=== PATIENT | female | born 1950 | race Caucasian/White ===

== ENCOUNTER → 2016-11-26 08:03 | Outpatient (CLI) | payer MEDICARE ==
[2014-05-22 14:00] VITALS: BMI 24.0
[~2016-11-26 08:03] MED LIST: ALDACTONE100 MG PO; CHRONULAC30 ML PO; FOLIC ACID1 MG PO; LASIX40 MG PO; LEVAQUIN500 MG PO; MUCINEX D1 TAB.SR . PO; PREDNISONE20 MG PO; PROAIR HFA8.5 GM INH; PROTONIX40 MG PO; SINGULAIR10 MG PO; SPIRIVA18 MCG INH; TESSALON PERLE100 MG PO; VITAMIN B-1100 M1 PO
== END | disposition home or self-care (01) ==
LOC: D.RT 08:00
DX: J44.9 Chronic obstructive pulmonary disease, unspecified (principal)

== ENCOUNTER 2018-06-25 16:01 | Inpatient (IN) | payer MEDICARE, BC ==
[~2018-06-25] VITALS: Ht 172.7 cm; Wt 66.7 kg
[2018-06-25] MEDS ORDERED: XIFAXAN550 MG PO (16:12)
[2018-06-25 17:01] LABS: BASOPHILS 0.2 % (0-2); EOSINOPHILS 0 % (0-7); HEMATOCRIT 40.8 % (36.0-48.0); HEMOGLOBIN 13.5 g/dL (12-16); IMMATURE GRANULOCYTES 0.1 % (0-5); LYMPHOCYTES 6.6 % (15-50); MCH 29.7 pg (26.0-34.0); MCHC 33.1 g/dL (31.0-37.0); MCV 89.9 fL (80.0-100.0); MEAN PLATELET VOLUME 9.5 fL (7.4-10.4); MONOCYTES 4.9 % (2-11); NEUTROPHILS 88.2 % (40-80); RBC 4.54 10x6/uL (4.00-5.40); RDW 16.9 % (11.5-14.5); WBC 10.4 10x3/uL (4.8-10.8)
[2018-06-25 17:08] LABS: ALBUMIN 3.5 g/dL (3.4-5.0); ALKALINE PHOSPHATASE 76 U/L (46-116); ALT (SGPT) 58 U/L (10-68); BILIRUBIN - TOTAL 0.79 mg/dL (0.2-1.3); CALC OSMOLALITY 281 mosm/kg (275-300); CALCIUM 9.3 mg/dL (8.5-10.1); CARBON DIOXIDE 22.7 mmol/L (21.0-32.0); CHLORIDE - SERUM 101 mmol/L (98-107); CREATININE - SERUM 1.2 mg/dL (0.6-1.3); GLUCOSE 114 mg/dL (74-106); POTASSIUM - SERUM 4.9 mmol/L (3.5-5.1); PROTEIN - SERUM 8.3 g/dL (6.4-8.2); SODIUM 137 mmol/L (136-145); UREA NITROGEN 33 mg/dL (7-18); eGFR NON AFRICAN AMERICAN 47 mL/min (90-120)
[2018-06-25 17:09] LABS: PLATELET COUNT 292 10x3/uL (130-400)
[2018-06-25 17:20] LABS: CKMB 10.4 U/L (0.0-3.6); CREATINE KINASE 219 UL (21-215)
[2018-06-25 17:31] LABS: TROPONIN-I < 0.017 ng/mL (0.000-0.060)
--- NOTE | 2018-06-25 18:00 | NUR ---
ROCEPHIN INFUSION COMPLETE AT THIS TIME.
--- NOTE | 2018-06-25 18:48 | NUR ---
respiratory at bedside.
--- NOTE | 2018-06-25 18:52 | NUR ---
REPORT CALLED TO [facility], NURSE ROOM 2214. PT STABLE, CALL LIGHT WITHIN REACH, DENIES NEEDS, WILL CONTINUE TO MONITOR.
[2018-06-25] MEDS ORDERED: PREDNISONE20 MG PO (19:36)
[2018-06-25] MEDS ORDERED: DOXYCYCLINE HY100 M2 PO (19:37)
--- NOTE | 2018-06-25 19:38 | NUR ---
PT RECEIVED TO FLOOR WITH FAMILY. PT ALERT AND ORIENTED. ASSESSED BREATH SOUNDS. SHALLOW BREATHS NOTED. DIMINSHED BREATH SOUNDS. PT DOES NOT COMPLAIN OF ANY PAIN. TELELMETRY APPLIED TO PATIENT PER ORDER.
[2018-06-25 22:14] VITALS: BP 150/89
[2018-06-26 01:42] VITALS: BP 128/74
[2018-06-26 03:44] VITALS: BP 150/89; BMI 22.4
--- NOTE | 2018-06-26 04:10 | NUR ---
PT ALERT AND WATCHING TV WITH DAUGHTER IN ROOM. ASSISTED PATIENT TO BATHROOM. PATIENT EXPERIENCES DYSPNA UPON EXERTION. PATIENT IS ABLE TO "CATCH BREATH" AFTER SEVERAL MINUTES. NC AT 3L.
[2018-06-26 05:23] VITALS: BP 143/74
--- NOTE | 2018-06-26 06:47 | NUR ---
I CONCUR WITH TELECOM MANAGER ASSESSMENT.
[2018-06-26 06:53] LABS: BASOPHILS 0.3 % (0-2); EOSINOPHILS 0 % (0-7); HEMOGLOBIN 11.9 g/dL (12-16); IMMATURE GRANULOCYTES 0.2 % (0-5); LYMPHOCYTES 8.7 % (15-50); MCH 29.1 pg (26.0-34.0); MCHC 32.2 g/dL (31.0-37.0); MCV 90.5 fL (80.0-100.0); MEAN PLATELET VOLUME 9.5 fL (7.4-10.4); MONOCYTES 4.3 % (2-11); NEUTROPHILS 86.5 % (40-80); PLATELET COUNT 277 10x3/uL (130-400); RBC 4.09 10x6/uL (4.00-5.40)
[2018-06-26 07:11] LABS: ALBUMIN 3.1 g/dL (3.4-5.0); ANION GAP 16.7 mmol/L (8-16); BILIRUBIN - TOTAL 0.39 mg/dL (0.2-1.3); CARBON DIOXIDE 24.1 mmol/L (21.0-32.0); CREATININE - SERUM 0.9 mg/dL (0.6-1.3); MAGNESIUM - SERUM 1.6 mg/dL (1.8-2.4); POTASSIUM - SERUM 4.8 mmol/L (3.5-5.1); PROTEIN - SERUM 7.4 g/dL (6.4-8.2)
--- NOTE | 2018-06-26 08:30 | NUR ---
PT AOX4 RESP EVEN AND NONLABORED PT DENIES NEEDS AT THIS TIME IV TO RIGHT HAND PATENT AND INTACT AT THIS TIME BED AT LOWEST SETTING CALL LIGHT WITHIN REACH SRX2 WILL CONTINUE TO MONITOR
[2018-06-26 08:46] VITALS: BMI 22.3
[2018-06-26 09:00] VITALS: BP 158/85
[2018-06-26 11:56] VITALS: Ht 172.7 cm; Wt 66.7 kg
[2018-06-26 13:40] VITALS: BP 158/77
[2018-06-26 18:20] VITALS: BP 149/91
--- NOTE | 2018-06-26 22:30 | NUR ---
RN NOTE: PT HAD EPISODE AFTER TAKING A SIP OF WATER WHERE SHE COULD NOT BREATH. VERY ANXIOUS, BUT BETTER NOW AND BREATHING EASIER. HS MEDICATIONS GIVEN WITH MILK. PROVIDED SCRUB PANTS AND BRIEFS, AND ASSISTED WITH CHANGING. WILL CONTINUE TO MONITOR FOR NEEDS.
[2018-06-27 01:14] VITALS: BP 158/76
--- NOTE | 2018-06-27 01:56 | NUR ---
PT RESTING COMFORTABLY WITH EYES CLOSED. THIS IS THE FIRST TIME PATIENT HAS BEEN ABLE TO RELAX AND SLEEP WITHOUT FEAR OF NOT BEING ABLE TO BREATHE. NO DISTRESS NOTED AT THIS TIME. RIGHT HAND IV INFUSING WITH LR @ 125. CALL LIGHT IN REACH.
--- NOTE | 2018-06-27 04:58 | NUR ---
RN NOTE: AGREE WITH GLUE MAKER ASSESSMENT.
[2018-06-27 05:33] VITALS: BP 154/81
--- NOTE | 2018-06-27 07:15 | NUR ---
MORNING ASSESSMENT COMPLETE. SEE ASSESSMENT FLOWSHEET FOR FURTHER DETIALS. PT LYING IN BED AAO X4 TO PERSON, PLACE, TIME, AND SITUATION. DENIES NEEDS AT THIS TIME. CL IN REACH. SIDE RAILS UP X2.
[2018-06-27 07:28] LABS: BASOPHILS 0.2 % (0-2); EOSINOPHILS 0 % (0-7); HEMATOCRIT 41.5 % (36.0-48.0); HEMOGLOBIN 13.3 g/dL (12-16); IMMATURE GRANULOCYTES 0.3 % (0-5); LYMPHOCYTES 15.2 % (15-50); MCH 29.2 pg (26.0-34.0); MCV 91.2 fL (80.0-100.0); MEAN PLATELET VOLUME 9.4 fL (7.4-10.4); MONOCYTES 5.2 % (2-11); NEUTROPHILS 79.1 % (40-80); PLATELET COUNT 286 10x3/uL (130-400); RBC 4.55 10x6/uL (4.00-5.40); RDW 16.7 % (11.5-14.5); WBC 6.1 10x3/uL (4.8-10.8)
[2018-06-27 07:44] LABS: ALBUMIN 3.4 g/dL (3.4-5.0); ANION GAP 13.4 mmol/L (8-16); BILIRUBIN - TOTAL 0.5 mg/dL (0.2-1.3); CALCIUM 9.5 mg/dL (8.5-10.1); CARBON DIOXIDE 25.4 mmol/L (21.0-32.0); CREATININE - SERUM 0.9 mg/dL (0.6-1.3); MAGNESIUM - SERUM 1.8 mg/dL (1.8-2.4); POTASSIUM - SERUM 4.8 mmol/L (3.5-5.1); PROTEIN - SERUM 7.8 g/dL (6.4-8.2)
[2018-06-27 14:15] VITALS: BP 166/96
[2018-06-27 18:48] VITALS: BP 117/84
[2018-06-27 20:00] VITALS: BP 167/89
[2018-06-28 04:00] VITALS: BP 119/61
[2018-06-28 05:06] LABS: BASOPHILS 0 % (0-2); EOSINOPHILS 0 % (0-7); HEMATOCRIT 37.3 % (36.0-48.0); HEMOGLOBIN 11.8 g/dL (12-16); IMMATURE GRANULOCYTES 0.4 % (0-5); LYMPHOCYTES 8.3 % (15-50); MCH 28.9 pg (26.0-34.0); MCHC 31.6 g/dL (31.0-37.0); MCV 91.4 fL (80.0-100.0); MEAN PLATELET VOLUME 9.5 fL (7.4-10.4); MONOCYTES 13.9 % (2-11); NEUTROPHILS 77.4 % (40-80); PLATELET COUNT 247 10x3/uL (130-400); RBC 4.08 10x6/uL (4.00-5.40); RDW 16.3 % (11.5-14.5); WBC 5.3 10x3/uL (4.8-10.8)
[2018-06-28 05:27] LABS: ALBUMIN 2.7 g/dL (3.4-5.0); ALKALINE PHOSPHATASE 46 U/L (46-116); ALT (SGPT) 72 U/L (10-68); BILIRUBIN - TOTAL 0.33 mg/dL (0.2-1.3); CALC OSMOLALITY 284 mosm/kg (275-300); CARBON DIOXIDE 29.3 mmol/L (21.0-32.0); CHLORIDE - SERUM 104 mmol/L (98-107); CREATININE - SERUM 0.7 mg/dL (0.6-1.3); GLUCOSE 117 mg/dL (74-106); MAGNESIUM - SERUM 1.8 mg/dL (1.8-2.4); PROTEIN - SERUM 6.3 g/dL (6.4-8.2); SODIUM 139 mmol/L (136-145); UREA NITROGEN 28 mg/dL (7-18); eGFR NON AFRICAN AMERICAN 88 mL/min (90-120)
--- NOTE | 2018-06-28 07:14 | NUR ---
PT SITTING UP ON THE SIDE OF THE BED. PT ALERT AND ORIENTED. PT UP AD MEENA. PT ON 3L O2, NC. IV TO LEFT HAND, LR INFUSING @ 75ML/HR. SITE PATENT WITHOUT REDNESS OR SWELLING. NO C/O PAIN. NO S/S OF ACUTE DISTRESS NOTED. PT ON ELECTROLYTE PROTOCOL. PT ON TELEMETRY 96 SR. PT DENIES ANYTHING FURTHER AT THIS TIME. CALL LIGHT IN REACH. WILL CONTINUE TO MONITOR.
[2018-06-28 08:44] VITALS: BP 158/60
[2018-06-28 13:16] VITALS: BP 141/92
[2018-06-28 17:29] VITALS: BP 175/78
--- NOTE | 2018-06-28 19:06 | NUR ---
PT SITTING UP ON THE SIDE OF THE BED. NO C/O PAIN. NO S/S OF ACUTE DISTRESS NOTED. CALL LIGHT IN REACH. WILL CONTINUE TO MONITOR. PT DENIES ANYTHING FURTHER.
[2018-06-28 20:31] VITALS: BP 157/82
[2018-06-29 00:47] VITALS: BP 164/84
[2018-06-29 04:54] VITALS: BP 190/73
[2018-06-29 05:21] LABS: BASOPHILS 0 % (0-2); EOSINOPHILS 0 % (0-7); HEMATOCRIT 37.2 % (36.0-48.0); HEMOGLOBIN 11.7 g/dL (12-16); IMMATURE GRANULOCYTES 0.3 % (0-5); LYMPHOCYTES 15.3 % (15-50); MCH 28.7 pg (26.0-34.0); MCHC 31.5 g/dL (31.0-37.0); MCV 91.2 fL (80.0-100.0); MEAN PLATELET VOLUME 9.5 fL (7.4-10.4); MONOCYTES 10.4 % (2-11); PLATELET COUNT 248 10x3/uL (130-400); RBC 4.08 10x6/uL (4.00-5.40); WBC 6.2 10x3/uL (4.8-10.8)
[2018-06-29 05:39] LABS: ALBUMIN 2.8 g/dL (3.4-5.0); ANION GAP 12.3 mmol/L (8-16); BILIRUBIN - TOTAL 0.43 mg/dL (0.2-1.3); CALCIUM 9.1 mg/dL (8.5-10.1); CARBON DIOXIDE 30.5 mmol/L (21.0-32.0); MAGNESIUM - SERUM 1.6 mg/dL (1.8-2.4); POTASSIUM - SERUM 4.8 mmol/L (3.5-5.1); PROTEIN - SERUM 6.3 g/dL (6.4-8.2)
[2018-06-29 05:43] LABS: CREATININE - SERUM 0.9 mg/dL (0.6-1.3)
--- NOTE | 2018-06-29 07:50 | NUR ---
PATIENT SITTING ON SIDE OF BED, DYSPNEA WITH EXERTION, 02@3L NC, PATIENT UP ADLIB TO RESTROOM, IV LEFT FOREARM WITH LR INFUSING @75. CL IN REACH
[2018-06-29 09:23] VITALS: BP 143/73
--- NOTE | 2018-06-29 13:09 | NUR ---
NUTRITIION F/U CHART REVIEWED. PT VISIT. PT TOLERATING AHA DIET WITH 100% INTAKE MEALS. PT REPORTS SHE IS ALSO DRINKING HER ENSURE. WILL CONTINUE TO PROVIDE DIET, MONITOR PO INTAKE. RD FOLLOWING
[2018-06-29 14:21] VITALS: BP 143/85
--- NOTE | 2018-06-29 14:24 | MORECARE ---
CASE MANAGEMENT DISCHARGE SUMMARY PATIENT: JANICE BECK UNIT: [id number] ADM DATE: 06/25/18 AGE: 68 : 51 SEX: F ROOM/BED: D.2214 AUTHOR: MATTHEW LOYOLA PHYSICIAN: REFERRING PHYSICIAN: RADHA RODRIGUEZ MD DATE OF SERVICE: 06/29/18 Discharge Plan Patient Name: JANICE BECK [facility] [facility] 1950 Planned Disposition: Home or Self Care Anticipated Discharge Date: Discharge Date: Expected LOS: Initial Reviewer: [email or web address] Initial Review Date: 06/25/2018 Generated: 06/29/18 3:24 pm DCPIA - Discharge Planning Initial Assessment Updated by [id number]: Rekha Aj on 06/29/18 2:23 pm * Is the patient Alert and Oriented? Yes * How many steps to enter\exit or inside your home? * PCP [facility] * [facility] * Preadmission Environment Home Alone * ADLs Independent * Equipment Nebulizer * List name and contact numbers for known caregivers / representatives who currently or will assist patient after discharge: DUKE PATEL [phone] * Verbal permission to speak to the caregivers and representatives has been obtained from the patient. N/A * Community resources currently utilized None * Additional services required to return to the preadmission environment? Yes * Can the patient safely return to the preadmission environment? Yes * Has this patient been hospitalized within the prior 30 days at any hospital? No External Providers External Provider: [facility] Next Contact Date: Service Request Date: Service Type: Resolution: Reviewer: Comments: Patient Name: JANICE BECK Page [phone] at 1424 All edits/amendments must be made on the electronic document DICTATION DATE: 06/29/181422 DIE TECHNICIAN: NENA 06/29/181422 RPT#: [id number] DC DATE: STATUS: ADM IN [facility] [address] [place] [address] END OF REPORT
--- NOTE | 2018-06-29 14:33 | MORECARE ---
CASE MANAGEMENT DISCHARGE SUMMARY PATIENT: JANICE BECK UNIT: [id number] ADM DATE: 06/25/18 AGE: 68 : 51 SEX: F ROOM/BED: D.2134 AUTHOR: NIRDOC PHYSICIAN: REFERRING PHYSICIAN: RADHA RODRIGUEZ MD DATE OF SERVICE: 06/29/18 Discharge Plan Patient Name: JANICE BECK Facility[facility]:[place] : 1950 Planned Disposition: Home or Self Care Anticipated Discharge Date: Discharge Date: Expected LOS: Initial Reviewer: [email or web address] Initial Review Date: 06/25/2018 Generated: 06/29/18 3:33 pm Comments DCP- Discharge Planning Updated by [email or web address]: Rekha Aj on 06/29/18 1:[address] Patient Name: JANICE Valentin BECK Admission Status: ER Accout number: [id number] Admission Date: 06-25-2018 : 1950 Admission Diagnosis:CHRONIC OBSTRUCTIVE PULMONARY DISEASE W (ACUTE) EXACERB Attending: RADHA RODRIGUEZ Current LOS: 4 Anticipated DC Date: Planned Disposition: Home or Self Care Primary Insurance: MEDICARE A & B Discharge Planning Comments: CM met with patient to complete initial dc planning assessment. CM educated patient on the CM role and verbal consent given by patient to complete assessment. [facility] where she is independent with her care. At discharge patient plans to return home and feels this is a safe discharge. One of her daughters will be driving her home and will stay with her if need be. CM discussed availability of home health, rehab services, and medical equipment. Patient stated that she has a nebulizer at home, but was unsure what company. Patient will need home O2 with portability, [facility] with [facility]. I sent the order and they will deliver portable to hospital and set up home O2 when she is discharged. Patient denied known discharge needs at this time & refused home health. IMM served and explained. CM will continue to follow and will assist as needed with dc plans/needs. Bacon De Rinder: Rekha Aj DCPIA - Discharge Planning Initial Assessment Updated by [email or web address]: Rekha Aj on 06/29/18 2:23 pm * Is the patient Alert and Oriented? Yes * How many steps to enter\exit or inside your home? * PCP [facility] * [facility] * Preadmission Environment Home Alone * ADLs Independent * Equipment Nebulizer * List name and contact numbers for known caregivers / representatives who currently or will assist patient after discharge: DUKE PATEL [phone] * Verbal permission to speak to the caregivers and representatives has been obtained from the patient. N/A * Community resources currently utilized None * Additional services required to return to the preadmission environment? Yes * Can the patient safely return to the preadmission environment? Yes * Has this patient been hospitalized within the prior 30 days at any hospital? No Coverage Notice Reviewer: [email or web address] Carina Aj Notice Issued Date-Time: 06/29/2018 11:40 Notice Type: IM Discharge Notice Notice Delivered To: Patient Relationship to Patient: Coal Dumping Equipment Operator Name: Delivery Method: HAND - Hand Delivered Jada Days: Prior Verbal Notification: Recipient Understood Notice: Yes Recipient Signature: Yes Med Rec Note Co-signed by Attending: Coverage Notice Comment: Last DP export: 06/29/18 1:24 p Patient Name: JANICE BECK Page [id number] at 1433 All edits/amendments must be made on the electronic document DICTATION DATE: 06/29/181432 LANDSCAPE DRAFTER: NENA 06/29/181432 RPT#: [id number] DC DATE: STATUS: ADM IN [facility] [address] [place] [address] END OF REPORT
[2018-06-29 17:18] VITALS: BP 143/70
[2018-06-29 20:00] VITALS: BP 159/96
--- NOTE | 2018-06-29 20:00 | NUR ---
SITTING UP ON SIDE OF BED RESP UNLABORED O2 IN USE BREATH SOUNDS DEMINISHED SHORT OF BREATH WITH EXERTION, IV INFUSIGN WITHOUT DIFFICULTY NO C/O OR REQUEST
[2018-06-30] VITALS: BP 145/62
--- NOTE | 2018-06-30 | NUR ---
EYES CLOSED RESPIRATIONS WITH EASE AND UNLABORED.O2 AT 3L/M PER NC. IV PATENT LEFT FOREARM OF LR AT 125CC'S/HR. SITE CLEAR.
[2018-06-30 04:00] VITALS: BP 167/97
[2018-06-30 05:37] LABS: BASOPHILS 0 % (0-2); EOSINOPHILS 0 % (0-7); HEMATOCRIT 36.6 % (36.0-48.0); HEMOGLOBIN 11.5 g/dL (12-16); IMMATURE GRANULOCYTES 0.4 % (0-5); LYMPHOCYTES 11.6 % (15-50); MCH 28.5 pg (26.0-34.0); MCHC 31.4 g/dL (31.0-37.0); MCV 90.8 fL (80.0-100.0); MEAN PLATELET VOLUME 9.7 fL (7.4-10.4); PLATELET COUNT 255 10x3/uL (130-400); RBC 4.03 10x6/uL (4.00-5.40); RDW 15.9 % (11.5-14.5); WBC 5.5 10x3/uL (4.8-10.8)
[2018-06-30 06:05] LABS: ALBUMIN 2.7 g/dL (3.4-5.0); ALKALINE PHOSPHATASE 38 U/L (46-116); BILIRUBIN - TOTAL 0.63 mg/dL (0.2-1.3); CALC OSMOLALITY 284 mosm/kg (275-300); CALCIUM 8.9 mg/dL (8.5-10.1); CARBON DIOXIDE 32.9 mmol/L (21.0-32.0); CHLORIDE - SERUM 103 mmol/L (98-107); CREATININE - SERUM 0.8 mg/dL (0.6-1.3); GLUCOSE 146 mg/dL (74-106); MAGNESIUM - SERUM 1.8 mg/dL (1.8-2.4); SODIUM 140 mmol/L (136-145); UREA NITROGEN 21 mg/dL (7-18); eGFR NON AFRICAN AMERICAN 76 mL/min (90-120)
[2018-06-30 06:21] LABS: ALT (SGPT) 98 U/L (10-68)
--- NOTE | 2018-06-30 08:10 | NUR ---
PATIENT ADMITTED FOR COPD EXACERBATION. WILL BED DISCHARGING HOME TODAY WITH HOME 02. DYSPNEA NOTED WITH MINIAMAL EXERTION, 02 2L NC. BREATH SOUNDS CLEAR BUT DEMINISHED.
[2018-06-30 08:20] VITALS: BP 144/80
[2018-06-30] MEDS ORDERED: FLUTICASONE PRO16 GM NASAL (10:11)
[2018-06-30] MEDS ORDERED: BREO ELLIPTA 21 EACH INH (10:13)
[2018-06-30] MEDS ORDERED: PREDNISONE10 MG PO (10:15)
[2018-06-30] MEDS ORDERED: OMNICEF300 MG PO (10:21)
[2018-06-30] MEDS ORDERED: IPRAT-ALBUT 0.5-3 ML INH (10:21)
[2018-06-30] MEDS ORDERED: ZITHROMAX500 MG PO ×2 (10:21→10:37)
--- NOTE | 2018-06-30 12:22 | MORECARE ---
CASE MANAGEMENT DISCHARGE SUMMARY PATIENT: JANICE BECK UNIT: [id number] ADM DATE: 06/25/18 AGE: 68 : 51 SEX: F ROOM/BED: D.2214 AUTHOR: NIR,DOC PHYSICIAN: REFERRING PHYSICIAN: RADHA RODRIGUEZ MD DATE OF SERVICE: 06/30/18 Discharge Plan Patient Name: JANICE BECK Facility: [facility]:[place] : 1950 Planned Disposition: Home or Self Care Anticipated Discharge Date: Discharge Date: Expected LOS: Initial Reviewer: [email or web address] Initial Review Date: 06/25/2018 Generated: 06/30/18 1:21 pm Comments DCP- Discharge Planning Updated by [email or web address]: Rekha Aj on 06/30/18 11:[address] spoke with Judith at [facility] they have delivered portable O2 to hospital and have her set up at home. Patient will discharge home today. CM to follow and assist with dc planning as needed DCP- Discharge Planning Updated by [email or web address]: Rekha Aj on 06/29/18 1:[address] Patient Name: JANICE Valentin [facility] Admission Status: ER Accout number: [id number] Admission Date: 06-25-2018 : 1950 Admission Diagnosis:CHRONIC OBSTRUCTIVE PULMONARY DISEASE W (ACUTE) EXACERB Attending: RADHA RODRIGUEZ Current LOS: 4 Anticipated DC Date: Planned Disposition: Home or Self Care Primary Insurance: MEDICARE A & B Discharge Planning Comments: CM met with patient to complete initial dc planning assessment. CM educated patient on the CM role and verbal consent given by patient to complete assessment. Patient lives in [facility] where she is independent with her care. At discharge patient plans to return home and feels this is a safe discharge. One of her daughters will be driving her home and will stay with her if need be. CM discussed availability of home health, rehab services, and medical equipment. Patient stated that she has a nebulizer at home, but was unsure what company. Patient will need home O2 with portability, [facility] with [facility]. I sent the order and they will deliver portable to hospital and set up home O2 when she is discharged. Patient denied known discharge needs at this time & refused home health. IMM served and explained. CM will continue to follow and will assist as needed with dc plans/needs. Pm Technician: Rekha Aj DCPIA - Discharge Planning Initial Assessment Updated by [email or web address]: Rekha Aj on 06/29/18 2:23 pm * Is the patient Alert and Oriented? Yes * How many steps to enter\exit or inside your home? * PCP [facility] * [facility] * Preadmission Environment Home Alone * ADLs Independent * Equipment Nebulizer * List name and contact numbers for known caregivers / representatives who currently or will assist patient after discharge: DUKE PATEL [phone] * Verbal permission to speak to the caregivers and representatives has been obtained from the patient. N/A * Community resources currently utilized None * Additional services required to return to the preadmission environment? Yes * Can the patient safely return to the preadmission environment? Yes * Has this patient been hospitalized within the prior 30 days at any hospital? No Coverage Notice Reviewer: [id number] - Rekha Aj Notice Issued Date-Time: 06/29/2018 11:40 Notice Type: IM Discharge Notice Notice Delivered To: Patient Relationship to Patient: Technology Instructor Name: Delivery Method: HAND - Hand Delivered Jada Days: Prior Verbal Notification: Recipient Understood Notice: Yes Recipient Signature: Yes Med Rec Note Co-signed by Attending: Coverage Notice Comment: Last DP export: 06/29/18 1:33 p Patient Name: JANICE BECK Page [phone] at 1222 All edits/amendments must be made on the electronic document DICTATION DATE: 06/30/18 1221 GENERAL MANAGER ORACLE DATA CLOUD: NENA 06/30/18 1221 RPT#: [id number] DC DATE: STATUS: ADM IN [facility] [address] [place] [address] END OF REPORT
[2018-06-30 12:42] VITALS: BP 139/83
--- NOTE | 2018-06-30 13:20 | NUR ---
DISCHARGE INSTRUCTINS GIVEN TO PATIENT WITH UNDERSTANDING VOICED. IV REMOVED FROM LEFT FOREARM WITH NO REDNESS OR EDEMA AT SITE. PATIENT TAKEN BY WHEELCHAIR TO PRIVATE CAR WITH ASSISTANCE FROM VOLUNTEER
--- NOTE | 2018-06-30 15:28 | MORECARE ---
CASE MANAGEMENT DISCHARGE SUMMARY PATIENT: JANICE BECK UNIT: [id number] ADM DATE: 06/25/18 AGE: 68 : 51 SEX: F ROOM/BED: D.2214 AUTHOR: NIRDOC PHYSICIAN: REFERRING PHYSICIAN: RADHA RODRIGUEZ MD DATE OF SERVICE: 06/30/18 Discharge Plan Patient Name: JANICE BECK Facility: [facility]:[place] : 1950 Planned Disposition: Home or Self Care Anticipated Discharge Date: Discharge Date: 06/30/2018 Expected LOS: 0 Initial Reviewer: [email or web address] Initial Review Date: 06/25/2018 Generated: 06/30/18 4:28 pm Comments DCP- Discharge Planning Updated by [email or web address]: Rekha Aj on 06/30/18 11:[address] spoke with Judith at [facility] they have delivered portable O2 to hospital and have her set up at home. Patient will discharge home today. CM to follow and assist with dc planning as needed DCP- Discharge Planning Updated by [email or web address]: Rekha Aj on 06/29/18 1:[address] Patient Name: JANICE Valentin BECK Admission Status: ER Accout number: [id number] Admission Date: 06-25-2018 : 1950 Admission Diagnosis:CHRONIC OBSTRUCTIVE PULMONARY DISEASE W (ACUTE) EXACERB Attending: RADHA RODRIGUEZ Current LOS: 4 Anticipated DC Date: Planned Disposition: Home or Self Care Primary Insurance: MEDICARE A & B Discharge Planning Comments: CM met with patient to complete initial dc planning assessment. CM educated patient on the CM role and verbal consent given by patient to complete assessment. Patient lives in [facility] where she is independent with her care. At discharge patient plans to return home and feels this is a safe discharge. One of her daughters will be driving her home and will stay with her if need be. CM discussed availability of home health, rehab services, and medical equipment. Patient stated that she has a nebulizer at home, but was unsure what company. Patient will need home O2 with portability, [facility] with [facility]. I sent the order and they will deliver portable to hospital and set up home O2 when she is discharged. Patient denied known discharge needs at this time & refused home health. IMM served and explained. CM will continue to follow and will assist as needed with dc plans/needs. Fur Coat Sewer: Rekha Aj DCPIA - Discharge Planning Initial Assessment Updated by [email or web address]: Rekha Aj on 06/29/18 2:23 pm * Is the patient Alert and Oriented? Yes * How many steps to enter\exit or inside your home? * PCP [facility] * [facility] * Preadmission Environment Home Alone * ADLs Independent * Equipment Nebulizer * List name and contact numbers for known caregivers / representatives who currently or will assist patient after discharge: DUKE PATEL [phone] * Verbal permission to speak to the caregivers and representatives has been obtained from the patient. N/A * Community resources currently utilized None * Additional services required to return to the preadmission environment? Yes * Can the patient safely return to the preadmission environment? Yes * Has this patient been hospitalized within the prior 30 days at any hospital? No Coverage Notice Reviewer: [id number] - Rekha Aj Notice Issued Date-Time: 06/29/2018 11:40 Notice Type: IM Discharge Notice Notice Delivered To: Patient Relationship to Patient: Egg Separator Name: Delivery Method: HAND - Hand Delivered Jada Days: Prior Verbal Notification: Recipient Understood Notice: Yes Recipient Signature: Yes Med Rec Note Co-signed by Attending: Coverage Notice Comment: Last DP export: 06/30/18 11:22 a Patient Name: JANICE BECK Page [id number] at 1528 All edits/amendments must be made on the electronic document DICTATION DATE: 06/30/181526 SCOREKEEPER: NENA 06/30/181526 RPT#: [id number] DC DATE:06/30/18 STATUS: DIS IN [facility] [address] [place] [address] END OF REPORT
== END 2018-06-30 13:30 | disposition home or self-care (01) | DRG 189 ==
LOC: D.ER 16:01 → D.EDHOLD 17:02 → D.MS 17:02
PROVIDERS: Family Medicine; ADMIT Family Medicine
DX: J96.01 Acute respiratory failure with hypoxia (principal); J44.1 Chronic obstructive pulmonary disease with (acute) exacerbation; F41.9 Anxiety disorder, unspecified; J30.2 Other seasonal allergic rhinitis

== ENCOUNTER → 2018-09-02 09:25 | Outpatient (CLI) | payer MEDICARE, BC ==
[2018-06-26 11:56] VITALS: BMI 22.3
[~2018-09-02 09:25] MED LIST changes: +BREO ELLIPTA 21 EACH INH; +DOXYCYCLINE HY100 M2 PO; +FLUTICASONE PRO16 GM NASAL; +IPRAT-ALBUT 0.5-3 ML INH; +OMNICEF300 MG PO; +PREDNISONE10 MG PO; +XIFAXAN550 MG PO; +ZITHROMAX500 MG PO
== END | disposition home or self-care (01) ==
LOC: D.RAD 09:25
PROVIDERS: ATTEND Internal Medicine Pulmonary Disease
DX: J44.9 Chronic obstructive pulmonary disease, unspecified (principal)

== ENCOUNTER 2018-12-20 08:52 | Inpatient (IN) | payer MEDICARE, BC ==
[~2018-12-20] VITALS: Ht 172.7 cm; Wt 65.8 kg
[2018-12-20 09:52] LABS: BASOPHILS 0.3 % (0-2); EOSINOPHILS 0.3 % (0-7); HEMATOCRIT 35.1 % (36.0-48.0); IMMATURE GRANULOCYTES 0.3 % (0-5); LYMPHOCYTES 19.8 % (15-50); MCH 29.7 pg (26.0-34.0); MCHC 34.2 g/dL (31.0-37.0); MCV 86.9 fL (80.0-100.0); MEAN PLATELET VOLUME 9.8 fL (7.4-10.4); MONOCYTES 17.8 % (2-11); NEUTROPHILS 61.5 % (40-80); RBC 4.04 10x6/uL (4.00-5.40); RDW 14.6 % (11.5-14.5); WBC 7.9 10x3/uL (4.8-10.8)
[2018-12-20 09:55] LABS: INR 1.01 (0.85-1.17); PROTIME 12.8 SECONDS (11.6-15.0)
[2018-12-20 09:56] LABS: APTT 25.4 SECONDS (22.8-39.4)
[2018-12-20 10:01] LABS: PLATELET COUNT 172 10x3/uL (130-400)
[2018-12-20 10:03] LABS: ALBUMIN 2.8 g/dL (3.4-5.0); ANION GAP 14.8 mmol/L (8-16); BILIRUBIN - TOTAL 0.58 mg/dL (0.2-1.3); CALCIUM 8.2 mg/dL (8.5-10.1); POTASSIUM - SERUM 4.8 mmol/L (3.5-5.1); PROTEIN - SERUM 6.7 g/dL (6.4-8.2)
[2018-12-20 10:55] LABS: APPEARANCE CLEAR (CLEAR); BILIRUBIN NEGATIVE (NEGATIVE); COLOR YELLOW (YELLOW); GLUCOSE NEGATIVE (NEGATIVE); KETONE NEGATIVE (NEGATIVE); NITRITE NEGATIVE (NEGATIVE); PROTEIN NEGATIVE (NEGATIVE); SPECIFIC GRAVITY 1.005 (1.005-1.020); UROBILINOGEN NORMAL (NORMAL)
[2018-12-20] MEDS ORDERED: CLARITIN 10 MG10 MG PO (12:19)
[2018-12-20] MEDS ORDERED: IMODIUM2 MG PO (12:20)
[2018-12-20] MEDS ORDERED: BUMETANIDE0.5 MG PO (12:21)
[2018-12-20] MEDS ORDERED: ALIGN4 MG PO (12:23)
[2018-12-20] MEDS ORDERED: WELLBUTRIN XL150 M1 PO (12:23)
[2018-12-20] MEDS ORDERED: SYMBICORT 16010.2 GM INH (12:41)
[2018-12-20 12:42] VITALS: BP 128/62
[2018-12-20 19:50] VITALS: BP 136/65; Ht 172.7 cm; Wt 65.8 kg
[2018-12-20 20:00] VITALS: BP 127/66
[2018-12-21] VITALS: BP 131/63
[2018-12-21 04:00] VITALS: BP 190/60
[2018-12-21 06:10] LABS: HEMATOCRIT 31.8 % (36.0-48.0); HEMOGLOBIN 10.5 g/dL (12-16); MCH 29.1 pg (26.0-34.0); MCV 88.1 fL (80.0-100.0); MEAN PLATELET VOLUME 9.4 fL (7.4-10.4); PLATELET COUNT 145 10x3/uL (130-400); RBC 3.61 10x6/uL (4.00-5.40); RDW 14.6 % (11.5-14.5)
[2018-12-21 06:27] LABS: ANION GAP 12.7 mmol/L (8-16); CALCIUM 7.7 mg/dL (8.5-10.1); CARBON DIOXIDE 25.4 mmol/L (21.0-32.0); CREATININE - SERUM 0.9 mg/dL (0.6-1.3); POTASSIUM - SERUM 5.1 mmol/L (3.5-5.1)
[2018-12-21 06:37] LABS: WBC 5.7 10x3/uL (4.8-10.8)
[2018-12-21 09:38] VITALS: BP 154/70
[2018-12-21 09:38] LABS: LYMPHOCYTES 17 % (15-50); MONOCYTES 19 % (2-11); NEUTROPHILS 62 % (40-80); PLATELET ESTIMATE NORMAL
[2018-12-21 12:11] VITALS: BP 131/90
[2018-12-21 18:13] VITALS: BP 130/65
[2018-12-21 20:00] VITALS: BP 112/66
--- NOTE | 2018-12-21 20:55 | OP ---
PATIENT NAME: JANICE CHE MEDICAL RECORD: [id number] :[birth year] LOCATION:D.MS [facility]17 ADMISSION DATE:12/20/18 SURGEON: KURT BRANHAM DO DATE OF OPERATION: 12/21/2018 PROCEDURE PERFORMED: Right total hip arthroplasty. PREOPERATIVE DIAGNOSIS: Displaced right femoral neck fracture. POSTOPERATIVE DIAGNOSIS: Displaced right femoral neck fracture. INDICATIONS: Ms. Che is a 68-year-old female who presented to the ER yesterday after falling onto her right side. She was quite intoxicated and she fractured the femoral neck of her right hip. I was asked to see her by her family. When I saw her, she indeed had a femoral neck fracture that was displaced. I informed her of risks including infection, bleeding, damage to nerves and vessels, need for further surgery, further fracture, continued pain, blood clots, and even . She was okay with those risks and signed consent. SURGEON: Kurt Branham DO DESCRIPTION OF PROCEDURE: The patient was taken to the operative suite, laid in the supine position, sedated, intubated, and then moved over to the [place] table. Once she was positioned on the [place] table, the right hip was prepped and draped in sterile fashion. She was given 2 grams of Ancef preoperatively. The time-out was performed. Everyone was in agreement with correct side, site, patient, and procedure. The incision began over the tensor fascia anne muscle. Careful dissection was made down to the tensor fascia anne and the fascia was taken anteriorly and the muscle belly posteriorly. This opened up the rectus interval. An incision was made over the rectus, opening up that interval. The tensor fascia anne was then taken laterally and the rectus medially, opening up to the capsule. The ascending branch of the lateral femoral circumflex vessel was encountered, tied, and coagulated with the Aquamantys. The capsule was then opened. Hohmanns were placed around the neck of the femur and femoral neck was cut as it was a high femoral neck fracture. Once the femur was cut, the head was removed and the labrum was removed off the acetabulum, so was the pulvinar. Once that was done, the reaming began up to a 54. A 54 cup was then impacted in place and shell was put in. I then exposed the femur and began broaching. I broached to an 11 trial and it looked to be a little small. I went to a 12. Once the 12 was in, I trialed the 11 with a -6 and was of appropriate length. We then put the -6 head on with the actual implant and the hip was reduced. X-rays were taken and seemed to be good length. Once the lengths were confirmed on AP, the wound was irrigated. The capsule was then closed with #2 Ethibond in a [id number] fashion. The wound was then irrigated again. Valentino powder and vancomycin and tobramycin powder were placed on the wound. The tensor fascia anne fascia was then closed first in [id number] and then running locking stitch of #1 Vicryl. Skin was then closed with 2-0 Vicryl in inverted interrupted fashion with 4-0 Monocryl on skin and Prineo placed on skin. She was then awakened and taken to recovery in stable condition. BLOOD LOSS: Approximately 200 mL. COMPLICATIONS: None. TRANSINT:[id number] Voice Confirmation ID: [id number] DOCUMENT ID: [id number] OPERATIVE REPORT [id number] JANICE CHE MICHAEL D, DO at 2056 CC: [id number] DICTATION DATE: 12/21/18 1637 CLINICAL TRIAL DATA MANAGER: 12/21/18 1741 ADM IN [facility] [address] [place] [address]
[2018-12-22 04:00] VITALS: BP 110/49
[2018-12-22 07:22] LABS: CALC OSMOLALITY 264 mosm/kg (275-300); CALCIUM 7.6 mg/dL (8.5-10.1); CARBON DIOXIDE 25.3 mmol/L (21.0-32.0); CHLORIDE - SERUM 100 mmol/L (98-107); CREATININE - SERUM 0.7 mg/dL (0.6-1.3); GLUCOSE 104 mg/dL (74-106); POTASSIUM - SERUM 5.6 mmol/L (3.5-5.1); SODIUM 132 mmol/L (136-145); UREA NITROGEN 12 mg/dL (7-18); eGFR NON AFRICAN AMERICAN 88 mL/min (90-120)
[2018-12-22 07:54] LABS: BASOPHILS 0.2 % (0-2); EOSINOPHILS 0 % (0-7); HEMATOCRIT 26.9 % (36.0-48.0); HEMOGLOBIN 9.2 g/dL (12-16); IMMATURE GRANULOCYTES 0.4 % (0-5); MCH 29.4 pg (26.0-34.0); MCHC 34.2 g/dL (31.0-37.0); MEAN PLATELET VOLUME 10.3 fL (7.4-10.4); MONOCYTES 13.1 % (2-11); NEUTROPHILS 77.3 % (40-80); PLATELET COUNT 128 10x3/uL (130-400); RBC 3.13 10x6/uL (4.00-5.40); RDW 14.7 % (11.5-14.5); WBC 5.4 10x3/uL (4.8-10.8)
[2018-12-22 07:56] LABS: MCV 85.9 fL (80.0-100.0)
[2018-12-22 08:30] VITALS: BP 115/71
[2018-12-22 12:45] VITALS: BP 121/62
[2018-12-22 12:50] LABS: ALBUMIN 2.1 g/dL (3.4-5.0); BILIRUBIN - DIRECT 0.44 mg/dL (0.00-0.30); BILIRUBIN - INDIRECT 0.39 mg/dL (0.00-1.00); BILIRUBIN - TOTAL 0.83 mg/dL (0.2-1.3); PROTEIN - SERUM 5.4 g/dL (6.4-8.2)
[2018-12-22 16:00] VITALS: BP 98/47
[2018-12-22 20:00] VITALS: BP 108/54
[2018-12-23 04:00] VITALS: BP 122/59
[2018-12-23 06:06] LABS: BASOPHILS 0 % (0-2); EOSINOPHILS 0.2 % (0-7); HEMATOCRIT 29.5 % (36.0-48.0); HEMOGLOBIN 9.7 g/dL (12-16); IMMATURE GRANULOCYTES 0.3 % (0-5); LYMPHOCYTES 16.4 % (15-50); MCHC 32.9 g/dL (31.0-37.0); MEAN PLATELET VOLUME 9.9 fL (7.4-10.4); MONOCYTES 11.9 % (2-11); NEUTROPHILS 71.2 % (40-80); RBC 3.34 10x6/uL (4.00-5.40); RDW 15.1 % (11.5-14.5); WBC 6.6 10x3/uL (4.8-10.8)
[2018-12-23 06:12] LABS: MCV 88.3 fL (80.0-100.0); PLATELET COUNT 155 10x3/uL (130-400)
[2018-12-23 06:26] LABS: ALBUMIN 2.1 g/dL (3.4-5.0); ANION GAP 11.6 mmol/L (8-16); BILIRUBIN - TOTAL 0.97 mg/dL (0.2-1.3); CALCIUM 7.8 mg/dL (8.5-10.1); CARBON DIOXIDE 26.7 mmol/L (21.0-32.0); MAGNESIUM - SERUM 1.4 mg/dL (1.8-2.4); PROTEIN - SERUM 5.3 g/dL (6.4-8.2)
[2018-12-23 06:28] LABS: POTASSIUM - SERUM 4.3 mmol/L (3.5-5.1)
[2018-12-23 08:38] VITALS: BP 124/84
[2018-12-23 11:58] VITALS: BP 89/47
[2018-12-23 20:00] VITALS: BP 120/57
[2018-12-24 04:00] VITALS: BP 117/64
[2018-12-24 07:02] LABS: ALBUMIN 1.9 g/dL (3.4-5.0); ALKALINE PHOSPHATASE 116 U/L (46-116); ALT (SGPT) 82 U/L (10-68); BILIRUBIN - TOTAL 0.85 mg/dL (0.2-1.3); CALC OSMOLALITY 264 mosm/kg (275-300); CALCIUM 7.6 mg/dL (8.5-10.1); CARBON DIOXIDE 27.2 mmol/L (21.0-32.0); CHLORIDE - SERUM 101 mmol/L (98-107); CREATININE - SERUM 0.8 mg/dL (0.6-1.3); GLUCOSE 77 mg/dL (74-106); MAGNESIUM - SERUM 1.5 mg/dL (1.8-2.4); POTASSIUM - SERUM 3.6 mmol/L (3.5-5.1); PROTEIN - SERUM 5.2 g/dL (6.4-8.2); SODIUM 134 mmol/L (136-145); UREA NITROGEN 7 mg/dL (7-18); eGFR NON AFRICAN AMERICAN 76 mL/min (90-120)
[2018-12-24 07:17] LABS: BASOPHILS 0.2 % (0-2); EOSINOPHILS 0.6 % (0-7); HEMOGLOBIN 8.3 g/dL (12-16); IMMATURE GRANULOCYTES 0.4 % (0-5); LYMPHOCYTES 14.3 % (15-50); MCH 29.3 pg (26.0-34.0); MCHC 33.2 g/dL (31.0-37.0); MCV 88.3 fL (80.0-100.0); MEAN PLATELET VOLUME 9.6 fL (7.4-10.4); MONOCYTES 18.2 % (2-11); NEUTROPHILS 66.3 % (40-80); PLATELET COUNT 169 10x3/uL (130-400); RBC 2.83 10x6/uL (4.00-5.40)
[2018-12-24 08:44] VITALS: BP 106/51
--- NOTE | 2018-12-24 11:22 | MORECARE ---
CASE MANAGEMENT DISCHARGE SUMMARY PATIENT: JANICE BECK UNIT: [id number] ADM DATE: 12/20/18 AGE: 68 : 51 SEX: F ROOM/BED: D.2217 AUTHOR: MATTHEW LOYOLA PHYSICIAN: REFERRING PHYSICIAN: ANTONIO RIVERA DO DATE OF SERVICE: 12/24/18 Discharge Plan Patient Name: JANICE BECK Facility: [facility]:[place] : 1950 Planned Disposition: Inpatient Rehab Anticipated Discharge Date: Discharge Date: Expected LOS: Initial Reviewer: [email or web address] Initial Review Date: 12/20/2018 Generated: 12/24/18 12:22 pm Comments DCP- Discharge Planning Updated by [id number]: Rekha Aj on 12/24/18 10:[address] Patient has been accepted to inpatient rehab at [facility], IMM served and explained. Family at bedside and is aware. CM to follow and assist as needed DCP- Discharge Planning Updated by [email or web address]: Rekha Aj on 12/24/18 6:[address] SPOKE WITH PATIENT AND FAMILY AT LENGTH YESTERDAY AFTERNOON AND THE PATIENT WOULD LIKE TO GO TO [place] AT [facility] INPATIENT REHAB. REFERALL WAS SENT THIS AM. CM TO FOLLOW AND ASSIST NEEDED DCP- Discharge Planning Updated by [email or web address]: Charity Tyson on 12/20/18 3:[address] Patient Name: JANICE BECK Admission Status: ER Accout number: [id number] Admission Date: 12-20-2018 : 1950 Admission Diagnosis: Attending: ANTONIO RIVERA Current LOS: 1 Anticipated DC Date: Planned Disposition: Primary Insurance: MEDICARE A & B Discharge Planning Comments: DC PLAN: Return home alone. ANTICIPATED DC NEEDS: Denied known discharge needs in er. CM met with patient to complete initial dc planning assessment. CM educated patient on the CM role and verbal consent given by patient to complete assessment. CM verified patient's address, phone number, and emergency contact phone numbers. Patient lives at home alone and reports she is independent in her care. At discharge patient plans to return home and feels this is a safe discharge. CM discussed availability of home health, rehab services, and medical equipment. Patient denied known discharge needs at this time. Patient reports her daughter will transport her home at time of discharge. CM will continue to follow and will assist as needed with dc plans/needs. Child Adolescent Psychiatrist: Charity Tyson RN, [facility] DCPIA - Discharge Planning Initial Assessment Updated by [email or web address]: Charity Tyson on 12/20/18 4:30 pm * Is the patient Alert and Oriented? Yes * How many steps to enter\exit or inside your home? ramp * PCP Dr. Garrett * [facility] * Preadmission Environment Home Alone * ADLs Independent * Equipment Cane Oxygen Rolling Walker * Other Equipment wears O2 as needed. Cant remember who her o2 company is. * Verbal permission to speak to the caregivers and representatives has been obtained from the patient. Yes * Community resources currently utilized None * Additional services required to return to the preadmission environment? No * Can the patient safely return to the preadmission environment? Yes * Has this patient been hospitalized within the prior 30 days at any hospital? No External Providers External Provider: [facility] Next Contact Date: Service Request Date: Service Type: Resolution: Reviewer: Comments: Coverage Notice Reviewer: [email or web address] Carina Aj Notice Issued Date-Time: 12/24/2018 11:15 Notice Type: IM Discharge Notice Notice Delivered To: Patient Relationship to Patient: Daughter Fax Machine Operator Name: enriqueta beck Delivery Method: HAND - Hand Delivered Jada Days: Prior Verbal Notification: Recipient Understood Notice: Yes Recipient Signature: Yes Med Rec Note Co-signed by Attending: Coverage Notice Comment: Patient Name: JANICE BECK Page [id number] at 1122 All edits/amendments must be made on the electronic document DICTATION DATE: 12/24/18 1122 SECURITY SYSTEMS INTEGRATOR: NENA 12/24/18 1122 RPT#: [id number] DC DATE: STATUS: ADM IN [facility] [address] [place] [address] END OF REPORT
[2018-12-24] MEDS ORDERED: ELIQUIS2.5 MG PO (11:43)
[2018-12-24] MEDS ORDERED: TORADOL IV (11:43)
[2018-12-24] MEDS ORDERED: DILAUDID INJ2 MG/ML IV (11:44)
[2018-12-24] MEDS ORDERED: CHRONULAC30 ML PO (11:44)
[2018-12-24] MEDS ORDERED: oxyCODONE IR PO (11:44)
[2018-12-24] MEDS ORDERED: SINGULAIR10 MG PO (11:44)
[2018-12-24] MEDS ORDERED: LIBRIUM25 MG PO (11:44)
[2018-12-24] MEDS ORDERED: PROTONIX40 MG PO (11:45)
[2018-12-24] MEDS ORDERED: Senokot-S Tablet PO (11:45)
[2018-12-24 13:32] VITALS: BP 129/51
--- NOTE | 2019-01-01 12:01 | MORECARE ---
CASE MANAGEMENT DISCHARGE SUMMARY PATIENT: JANICE BECK UNIT: [id number] ADM DATE: 12/20/18 AGE: 68 : 51 SEX: F ROOM/BED: D.2217 AUTHOR: MATTHEW LOYOLA PHYSICIAN: REFERRING PHYSICIAN: ANTONIO RIVERA DO DATE OF SERVICE: 01/01/19 Discharge Plan Patient Name: JANICE BECK Facility: [facility]:[place] : 1950 Planned Disposition: Inpatient Rehab Anticipated Discharge Date: Discharge Date: 12/24/2018 Expected LOS: Initial Reviewer: [email or web address] Initial Review Date: 12/20/2018 Generated: 01/01/19 1:01 pm Comments DCP- Discharge Planning Updated by [email or web address]: Rekha Aj on 12/24/18 10:[address] Patient has been accepted to inpatient rehab at [facility], IMM served and explained. Family at bedside and is aware. CM to follow and assist as needed DCP- Discharge Planning Updated by [email or web address]: Rekha Aj on 12/24/18 6:[address] SPOKE WITH PATIENT AND FAMILY AT LENGTH YESTERDAY AFTERNOON AND THE PATIENT WOULD LIKE TO GO TO [facility] INPATIENT REH[facility]. REFERALL WAS SENT THIS AM. CM TO FOLLOW AND ASSIST NEEDED DCP- Discharge Planning Updated by [email or web address]: Charity Tyson on 12/20/18 3:[address] Patient Name: JANICE BECK Admission Status: ER Accout number: [id number] Admission Date: 12-20-2018 : 1950 Admission Diagnosis: Attending: ANTONIO RIVERA Current LOS: 1 Anticipated DC Date: Planned Disposition: Primary Insurance: MEDICARE A & B Discharge Planning Comments: DC PLAN: Return home alone. ANTICIPATED DC NEEDS: Denied known discharge needs in er. CM met with patient to complete initial dc planning assessment. CM educated patient on the CM role and verbal consent given by patient to complete assessment. CM verified patient's address, phone number, and emergency contact phone numbers. Patient lives at home alone and reports she is independent in her care. At discharge patient plans to return home and feels this is a safe discharge. CM discussed availability of home health, rehab services, and medical equipment. Patient denied known discharge needs at this time. Patient reports her daughter will transport her home at time of discharge. CM will continue to follow and will assist as needed with dc plans/needs. Structural Rigger: Charity Tyson RN, [facility] DCPIA - Discharge Planning Initial Assessment Updated by [email or web address]: Charity Tyson on 12/20/18 4:30 pm * Is the patient Alert and Oriented? Yes * How many steps to enter\exit or inside your home? ramp * PCP Dr. Garrett * [facility] * Preadmission Environment Home Alone * ADLs Independent * Equipment Cane Oxygen Rolling Walker * Other Equipment wears O2 as needed. Cant remember who her o2 company is. * Verbal permission to speak to the caregivers and representatives has been obtained from the patient. Yes * Community resources currently utilized None * Additional services required to return to the preadmission environment? No * Can the patient safely return to the preadmission environment? Yes * Has this patient been hospitalized within the prior 30 days at any hospital? No Coverage Notice Reviewer: [email or web address] Carina Aj Notice Issued Date-Time: 12/24/2018 11:15 Notice Type: IM Discharge Notice Notice Delivered To: Patient Relationship to Patient: Daughter Special Education Inclusion Teacher Name: enriqueta beck Delivery Method: HAND - Hand Delivered Jada Days: Prior Verbal Notification: Recipient Understood Notice: Yes Recipient Signature: Yes Med Rec Note Co-signed by Attending: Coverage Notice Comment: Last DP export: 12/24/18 10:22 a Patient Name: JANICE BECK Page [phone] at 1201 All edits/amendments must be made on the electronic document DICTATION DATE: 01/01/19 1201 BROOM BUILDER: NENA 01/01/19 1201 RPT#: [id number] DC DATE:12/24/18 STATUS: DIS IN [facility] [address] [place] [address] END OF REPORT
== END 2018-12-24 15:56 | DRG 470 ==
LOC: D.ER 08:52 → D.MS 15:42
PROVIDERS: Emergency Medicine; Orthopaedic Surgery; ADMIT Family Medicine; ATTEND Family Medicine
PROC: 0SR90J9 Replacement of Right Hip Joint with Synthetic Substitute, Cemented, Open Approach (ICD-10-PCS; principal; 2018-12-21 13:30)
DX: S72.001A Fracture of unspecified part of neck of right femur, initial encounter for closed fracture (principal); J44.1 Chronic obstructive pulmonary disease with (acute) exacerbation; E87.1 Hypo-osmolality and hyponatremia; W07.XXXA Fall from chair, initial encounter; Y92.009 Unspecified place in unspecified non-institutional (private) residence as the place of occurrence of the external cause; K70.30 Alcoholic cirrhosis of liver without ascites; F10.10 Alcohol abuse, uncomplicated; I10 Essential (primary) hypertension; D64.9 Anemia, unspecified

== ENCOUNTER 2019-09-15 20:59 | Emergency (ER) | payer MEDICARE, BC ==
[2018-12-20 19:50] VITALS: Ht 172.7 cm; Wt 67.3 kg
[~2019-09-15] VITALS: Ht 172.7 cm; Wt 67.3 kg
[~2019-09-15 20:59] MED LIST changes: +ALIGN4 MG PO; +BUMETANIDE0.5 MG PO; +CLARITIN 10 MG10 MG PO; +DILAUDID INJ2 MG/ML IV; +ELIQUIS2.5 MG PO; +IMODIUM2 MG PO; +LIBRIUM25 MG PO; +SYMBICORT 16010.2 GM INH; +Senokot-S Tablet PO; +TORADOL IV; +WELLBUTRIN XL150 M1 PO; +oxyCODONE IR PO
[2019-09-15 22:42] VITALS: BP 119/62
== END 2019-09-15 22:42 | disposition home or self-care (01) ==
LOC: D.ER 20:59
DX: S80.12XA Contusion of left lower leg, initial encounter (principal); J44.9 Chronic obstructive pulmonary disease, unspecified; Z99.81 Dependence on supplemental oxygen; Z72.0 Tobacco use; W54.1XXA Struck by dog, initial encounter; Y93.9 Activity, unspecified; Y92.9 Unspecified place or not applicable